=== PATIENT | female | born 1970 | race Caucasian/White ===

== ENCOUNTER → 2017-02-07 | Outpatient (CLI) | payer MEDICARE ==
[~2017-02-07] MED LIST: ABILIFY20 MG PO; AVINZA; COMBIPATCH1 PATCH.BW TOP; ELESTRIN144 GM TD; LAMICTAL PO; LEXAPRO PO; LITHIUM PO; LORTAB 7.5-5001 TAB PO; PERCOCET10 PO; PHENERGAN25 MG PO; PROMETRIUM PO; PROVIGIL; VAGIFEM25 MCG PO
--- NOTE | ~2017-02-07 | US136 ---
[facility] A Service of [facility] & [facility] RADIOLOGY TEXT RESULTS PATIENT: DOROTHEA PACHECO LOCATION: CNIV : 68 UNIT #: [id number] AGE: [address]: Juan Antonio Block MD SEX: F ORDER DR: [id number] [facility] [address]. [place], [place] [address] [id number] O MR#: [id number] Acc #: [id number] NAME: DOROTHEA PACHECO : 1970 SEX: F STUDY DATE/TIME: 02/07/2017 11:27 UNIT: CNIV ROOM: STUDY DESCRIPTION: US U/L Ext Art Study [facility] Bil Attending Physician: Juan Antonio Block M.D. Referring Physician: Juan Antonio Block M.D. Ordering Physician: Juan Antonio Block M.D. Primary Care Physician: Kat Lucas Aprn MEDICAL IMAGING REPORT This report is preliminary unless electronic signature is present EXAM Ankle-brachial indices, 02/07/2017 HISTORY Aortoiliac occlusive disease FINDINGS Lower extremity ankle-brachial indices and waveforms were done. The pulse volume recordings are triphasic to the ankle levels bilaterally. Doppler velocity waveforms are triphasic at the dorsalis pedis and posterior tibial arteries bilaterally. The right brachial pressure is 124 and left brachial pressure is 116. On the right side dorsalis pedis is 140, posterior tibial 139, great toe 125 for a right ankle-brachial index of 1.13. On the left side, posterior tibial artery is 126, dorsalis pedis 123, great toe 126, for a left ankle-brachial index of 1.02. IMPRESSION Normal perfusion is seen in the lower extremities bilaterally with ABIs of 1.1 on the right and 1.02 on the left. Waveforms and toe pressures are normal bilaterally. Dictated by... Juan Antonio Block M.D. THIS IS AN ELECTRONICALLY VERIFIED REPORT Juan Antonio Block M.D. at 02/15/2017 9:54 AM [place] TD: 02/07/2017 18:16 [facility] A Service of [facility] & [facility] RADIOLOGY TEXT RESULTS PATIENT: DOROTHEA PACHECO LOCATION: [facility] : [birth year] UNIT #: [id number] AGE: [address]: Juan Antonio Block MD SEX: F ORDER DR: JOB #: [id number] MEDICAL IMAGING REPORT Page 1 of 1 COPY
== END | disposition home or self-care (01) ==
LOC: CNIV 10:58
DX: I73.9 Peripheral vascular disease, unspecified (principal); I74.09 Other arterial embolism and thrombosis of abdominal aorta
CPT/HCPCS: 93922